=== PATIENT | male | born 1945 | race Caucasian/White ===

== ENCOUNTER 2017-03-24 09:06 | Outpatient (CLI) | payer MEDICARE ==
[~2017-03-24 09:06] MED LIST: Iopamidol 370 76% 100 ML VIAL ONE
[2017-03-24 09:37] LABS: Bilirubin Negative (Negative); Blood, Urine Trace (Negative); Glucose, Urine (Dipstick) Negative (Negative); Ketone, Urine Negative (Negative); Nitrite Negative (Negative); Protein, Urine (Dipstick) Negative (Neg-Trace)
[2017-03-24 09:45] LABS: Bacteria/HPF None Seen HPF (None Seen); RBC/HPF 0-3 HPF (0-3); Sperm/HPF Rare HPF (None Seen); Squamous Epithelial 0-3 HPF (0-3); WBC/HPF 0-3 HPF (0-3)
[2017-03-24 10:20] LABS: ALT (SGPT) 24 U/L (8-55); AST (SGOT) 23 U/L (5-34); Alkaline Phosphatase 73 U/L (40-150); Anion Gap 15 mmol/L (10-20); BUN (Urea Nitrogen) 18 mg/dL (8.4-25.7); Calc. Creatinine Clearance 0 mL/min (70-130); Calcium 9.7 mg/dL (7.8-10.44); Carbon Dioxide 26 mmol/L (23-31); Chloride 105 mmol/L (98-107); Cholesterol 145 mg/dl (< 200 Desired); Estimated GFR-MDRD 67; Globulin 2.7 g/dL (2.4-3.5); LDL Cholesterol, Calculated 92 mg/dL; Protein, Total 6.8 g/dL (5.8-8.1)
--- NOTE | 2017-03-24 12:24 | CT ---
CT ABDOMEN AND PELVIS WITH AND WITHOUT IV CONTRAST: Date: 03/24/17 HISTORY: Back pain, unable to urinate. FINDINGS: There is scarring of the left lung base. There is borderline cardiomegaly. The liver, pancreas, and adrenal glands are normal. No calcified gallstones are seen. A small hiatal hernia is present. There is a 7.4 cm exophytic cyst arising from the superior aspect of the right kidney. No calculi se en in the kidneys, ureters, or the urinary bladder. No hydroureteronephrosis is noted on either side . The prostate is enlarged. No solid or enhancing renal mass is seen. There is normal contrast excre tion into the ureters and urinary bladder. There is thickening of the wall of the urinary bladder. No free air, free fluid, or lymphadenopathy noted in the abdomen or pelvis. There are vascular calci fications without evidence of aneurysmal dilatation of the abdominal aorta. There are postop changes of laminectomy in the lower lumbar spine with fluid collection with posteri or enhancement posteriorly in the soft tissues. The linear posterior enhancement extends into the wa lls of the paraspinal muscles. There are degenerative changes in the spine. IMPRESSION: 1. No CT evidence of urinary tract calculi or obstruction. 2. Right renal cyst. 3. Small hiatal hernia. 4. Prostatic enlargement. 5. Bladder wall thickening. 6. Postop changes in the lower lumbar spine with posterior soft tissue fluid collection. This may b e due to postop seroma or infection. Clinical correlation is recommended. Findings discussed over the telephone with Dr. Galindo at 1050 hours. CODE CR. POS: JOSE C
== END 2017-03-24 09:07 | disposition home or self-care (01) ==
LOC: SCSCT 09:06
PROVIDERS: ATTEND Urology
DX: Z12.5 Encounter for screening for malignant neoplasm of prostate (principal); N28.1 Cyst of kidney, acquired; N40.1 Benign prostatic hyperplasia with lower urinary tract symptoms; E78.2 Mixed hyperlipidemia; K44.9 Diaphragmatic hernia without obstruction or gangrene; N32.89 Other specified disorders of bladder; I10 Essential (primary) hypertension; R31.29 Other microscopic hematuria; R33.9 Retention of urine, unspecified; Z79.899 Other long term (current) drug therapy; Z98.890 Other specified postprocedural states
CPT/HCPCS: 36415; 74178; 80053; 80061; 81001; 87086; G0103; G8978-GP-CK; G8979-GP-CI

== ENCOUNTER 2018-08-04 14:15 | Outpatient (CLI) | payer MEDICARE ==
--- NOTE | 2018-08-04 15:09 | RAD ---
LUMBAR SPINE 5 VIEWS: HISTORY: Low back pain. Stenosis. FINDINGS: There are 5 lumbar-type vertebrae. Pedicles and pars interarticularis are intact. Mild left convex rotator scoliotic curvature on the frontal view. Osteophytosis throughout the vertebral bodies and f acets. Vertebral body heights are maintained. Minimal degenerative spondylolisthesis at the L3-4 le yadiel without abnormal translational motion upon flexion or extension. Disk space narrowing on the upr ight view is most pronounced at the L1-2 and L4-5 levels. IMPRESSION: Degenerative changes throughout the lumbar spine as detailed above. No evidence of compression fract ure or other acute osseous abnormalities. POS: JOSE C
== END 2018-08-04 14:16 | disposition home or self-care (01) ==
LOC: BICRAD 14:15
PROVIDERS: ATTEND Family Medicine
DX: M48.061 Spinal stenosis, lumbar region without neurogenic claudication (principal); M47.816 Spondylosis without myelopathy or radiculopathy, lumbar region
CPT/HCPCS: 72100

== ENCOUNTER 2018-08-25 11:32 | Outpatient (CLI) | payer MEDICARE ==
[~2018-08-25 11:32] MED LIST changes: +Gadobenate Dimeglumine 529 MG/1 ML (20ML VIAL) ONE; -Iopamidol 370 76% 100 ML VIAL ONE
--- NOTE | 2018-08-25 15:11 | MRI ---
MRI LUMBAR SPINE WITH AND WITHOUT CONTRAST: HISTORY: Previous back surgery. Back pain radiating down the right hip and leg. COMPARISON: None. TECHNIQUE: MRI lumbar spine is performed with and without intravenous Gadolinium administration. Multisequentia l, multiplanar imaging is performed. FINDINGS: Appropriate T1 marrow signal intensity of the lumbar vertebrae. Lumbar spine vertebral body height i s maintained. There is no fracture. No significant STIR hyperintensity to suggest vertebral body ed brian or ligamentous injury. 2.8 mm of retrolisthesis of L1 upon L2, 3.3 mm anterolisthesis of L3 upon L4. There is no abnormal enhancement. No abnormal enhancement in the thecal sac including the caud a equina and conus medullaris. Exophytic cyst emanating from the right kidney. Conus medullaris terminates at the mid to lower aspe ct of T12. T12-L1: Adequate disk hydration. No significant central canal stenosis. Neural foramen are patent. L1-L2: Desiccation with moderate loss of disk space height. Minimal generalized disk bulge and mini mal ligamentum flavum thickening and facet hypertrophy. Minimal central canal stenosis. Mild to mod erate bilateral foraminal narrowing. L2-L3: Desiccation with mild loss of disk space height. Posterior laminectomy defect. No significa nt central canal stenosis. Mild to moderate bilateral neural foraminal narrowing. L3-L4: Posterior laminectomy defect. A small amount of fluid in both facet joints. There is bilate ral facet hypertrophy. There is a generalized disk bulge. Overall, there is mild central canal sten osis. Moderate bilateral foraminal narrowing. Mid L4 vertebral body level: There appears to be moderate narrowing of the thecal sac secondary to g ranulation tissue. L4-L5: Desiccation with severe loss of disk space height. Generalized disk bulge results in mild ce ntral canal stenosis. There is mild narrowing of the left subarticular zone. There is some mass eff ect without obscuration of the traversing left L5 nerve root. Right subarticular zone is unremarkabl e. Moderate right and moderate to severe left foraminal narrowing. L5-S1: Adequate disk hydration. No significant posterior disk abnormality. No significant central canal stenosis. Mild to moderate bilateral foraminal narrowing. IMPRESSION: 1. Postsurgical changes lumbar spine as detailed above. There are varying degrees of central canal stenosis as detailed above. Varying degrees of foraminal narrowing on the basis of degenerative figueroa ge. 2. There is moderate central canal stenosis predominantly at the L4 vertebral body level, predominan tly due to enhancing scar tissue at the laminectomy defect site along the posterior left and right as pect of the central spinal canal. POS: JOSE C
== END 2018-08-25 11:33 | disposition home or self-care (01) ==
LOC: SCSMRI 11:32
PROVIDERS: ATTEND Family Medicine
DX: M48.00 Spinal stenosis, site unspecified (principal); Z98.890 Other specified postprocedural states
CPT/HCPCS: 72158; 82565

== ENCOUNTER 2019-02-27 07:06 | Outpatient (CLI) | payer MEDICARE ==
--- NOTE | 2019-02-27 09:10 | ULT ---
ABDOMINAL AORTIC ULTRASOUND: HISTORY: Abdominal aortic aneurysm screening. FINDINGS: Real-time imaging of the abdominal aorta shows the proximal aorta to be largely obscured. The mid ao rta measures 2 cm. The more distal aorta is minimally ectatic with a measurement of approximately 2. 2 to 2.3 cm. The aortic bifurcation is normal. The iliac arteries are borderline in size, measuring in the 12 to 13 mm range. IMPRESSION: No evidence of aortic aneurysm. POS: OFF
== END 2019-02-27 07:07 | disposition home or self-care (01) ==
LOC: SCSULT 07:06
PROVIDERS: ATTEND Family Medicine
DX: Z13.6 Encounter for screening for cardiovascular disorders (principal)
CPT/HCPCS: 76775

== ENCOUNTER 2019-05-03 14:23 | Outpatient (CLI) | payer MEDICARE ==
[2019-05-03 15:41] LABS: Hemoglobin 16.1 g/dL (14.0-18.0); Mean Corpuscular HGB CONC 33.4 g/dL (32.0-36.0); Mean Corpuscular Hemoglobin 31.2 pg (27.0-31.0); Mean Corpuscular Volume 93.6 fL (78.0-98.0); Platelet Count 186 thou/uL (130-400); RBC Distribution Width 11.4 % (11.5-14.5); Red Blood Cell (RBC) Count 5.17 mill/uL (4.70-6.10); White Blood Cell (WBC) Count 6.8 thou/uL (4.8-10.8)
[2019-05-03 15:43] LABS: Bilirubin Negative (Negative); Blood, Urine 3+ (Negative); Clarity Clear (Clear); Glucose, Urine (Dipstick) Normal (Negative); Leukocyte Negative Leu/uL (Negative); Nitrite Negative (Negative); Protein, Urine (Dipstick) Negative (Neg-Trace); RBC/HPF Greater than 50 HPF (0-3); Squamous Epithelial 0-3 HPF (0-3); Urobilinogen Normal mg/dL (Less than 2)
[2019-05-03 15:45] LABS: Bacteria/HPF 1+ HPF (None Seen)
[2019-05-03 16:00] LABS: Anion Gap 14 mmol/L (10-20); BUN (Urea Nitrogen) 24 mg/dL (8.4-25.7); Calc. Creatinine Clearance 0 mL/min (70-130); Calcium 9.2 mg/dL (7.8-10.44); Carbon Dioxide 26 mmol/L (23-31); Chloride 105 mmol/L (98-107); Estimated GFR-MDRD 59; Glucose 98 mg/dL (83-110); Potassium 4.6 mmol/L (3.5-5.1); Sodium 140 mmol/L (136-145)
[2019-05-03 16:14] LABS: INR-International Normal Ratio 1.1; PTT 30.2 SEC (22.9-36.1)
--- NOTE | 2019-05-03 17:40 | EKG ---
Test Reason : Blood Pressure : / mmHG Vent. Rate : 072 BPM Atrial Rate : 072 BPM P-R Int : 174 ms QRS Dur : 106 ms QT Int : 402 ms P-R-T Axes : 075 254 137 degrees QTc Int : 440 ms Electronic atrial pacemaker with PAC Right superior axis deviation vs lead reversal Incomplete right bundle branch block Cannot rule out Anterior infarct (cited on or before 21-FEB-2012) T wave abnormality, consider lateral ischemia Abnormal ECG When compared with ECG of 23-FEB-2017 11:50, Electronic atrial pacemaker has replaced Sinus rhythm Incomplete right bundle branch block is now Present Confirmed by DR. Ricardo SCHULZ ([id number]) on 05/03/2019 5:39:51 PM Referred By: FERMÍN Confirmed By:DR. Ricardo SCHULZ
== END 2019-05-03 14:24 | disposition home or self-care (01) ==
LOC: LABBT 14:23
PROVIDERS: ATTEND Urology
DX: Z01.818 Encounter for other preprocedural examination (principal); N40.1 Benign prostatic hyperplasia with lower urinary tract symptoms; R31.29 Other microscopic hematuria; R33.9 Retention of urine, unspecified; M48.00 Spinal stenosis, site unspecified; Z80.42 Family history of malignant neoplasm of prostate; I42.0 Dilated cardiomyopathy; Z12.5 Encounter for screening for malignant neoplasm of prostate; N52.9 Male erectile dysfunction, unspecified
CPT/HCPCS: 80048; 81001; 85027; 85610; 85730; 87086; 93005; 93010

== ENCOUNTER 2019-05-14 07:25 | Day surgery (SDC) | payer MEDICARE ==
[2019-05-03 15:04] VITALS: BMI 30.8
[2019-05-14] MEDS ORDERED: Levofloxacin 500 mg/D5W 100 ml Premix Bag ONE (08:40)
[2019-05-14] MEDS ORDERED: Midazolam HCl 2 mg/2 ml Vial ONE (09:52)
[2019-05-14] MEDS ORDERED: Fentanyl 100 MCG/2 ML VIAL ONE (09:52)
[2019-05-14] MEDS ORDERED: Propofol 1,000 MG/100 ML VIAL IV ONE (09:52)
[2019-05-14] MEDS ORDERED: ePHEDrine/0.9% NaCl/PF SYRINGE 50 mg/10 ml ONE (09:57)
[2019-05-14] MEDS ORDERED: Iothalamate Meglumine 60% 50 ML VIAL FS ONE (10:21)
[2019-05-14] MEDS ORDERED: Phenazopyridine HCl 97.5 MG TABLET ONE (11:30)
--- NOTE | 2019-05-14 12:00 | OP ---
DATE OF PROCEDURE: 05/14/2019 PREOPERATIVE DIAGNOSES: A 74-year-old male with trilobar hyperplasia of the prostate, history of urinary retention. POSTOPERATIVE DIAGNOSES: A 74-year-old male with trilobar hyperplasia of the prostate, history of urinary retention. PROCEDURE PERFORMED: Cystoscopy, UroLift implant x6. ANESTHESIA: TIVA. COMPLICATIONS: None apparent. DISPOSITION: To recovery room in stable condition. INDICATIONS FOR PROCEDURE AND HISTORY: Mr. Mcmanus is a 74-year-old male with history of BPH, trilobar hyperplasia, with history of urinary retention, PVR of 600 to 800 mL. He has been on dual medical therapy, and desires to transition to surgical intervention. He did undergo workup with cystoscopy, volume study. He was informed regarding options of transurethral resection of prostate versus UroLift implant. As he does have evidence of a small intravesical median lobe, options of TURP was further addressed for more efficacious treatment. As he desires less invasive approach, full disclosure that UroLift may be suboptimal due to small intravesical median lobe. He desires a trial with full understanding that he may require staged intervention. Risks and complications of UroLift were reviewed with him in detail including, but not limited to, bleeding, pain, infection, injury to adjacent organs, injury to adjacent structures such as the ureteral orifices, bony prominences, neural vasculature was reviewed with him in detail. DESCRIPTION OF PROCEDURE: After an informed consent was signed, the patient was taken to the operating room, placed in a dorsal lithotomy position with the genital area prepped and draped in the usual surgical sterile fashion. A 22-Martiniquais cystoscope was utilized for cystoscopy, which demonstrated normal anterior urethra. Prostatic urethra was entered, which demonstrated again trilobar hyperplasia of the prostate with a small intravesical median lobe. On rigid cystoscopy, I am able to visualize the ureteral orifices away from the median lobe about 2 to 3 mm. This was kept out of harm's way throughout the procedure. At this time, we did transition to a UroLift scope, this was passed with a visual obturator. A total of 6 implants were placed. The first implant was placed in the left lateral lobe, care was taken to stay at least a centimeter and a half away from the bladder neck with the most proximal implants. We placed 2 implants on the left side, 3 on the right, and a 5th one was placed to reduce the median lobe. The UroLift device was placed in the sulcus of the median lobe and the median lobe retracted and reduced to the right side and implant placed to keeping the bladder neck off the harm's way. Reduction of the median lobe was coated with successful implant. Repeat cystoscopy demonstrated no evidence of implant in the bladder neck or the bladder mucosa side with the UOs kept out of harm's way. A nice open channel was seen sitting at the verumontanum. He tolerated the procedure well and transported to the recovery room in stable condition. We will watch him for a voiding trial. He is instructed to continue his dual medical therapy unless otherwise recommended by me. He is provided ciprofloxacin for 5 days, Azo p.r.n. and will see me tomorrow for a peak-flow PVR. Job ID: [id number] MTDD
== END 2019-05-14 16:50 | disposition home or self-care (01) ==
LOC: SDC 07:25
PROVIDERS: ATTEND Urology
PROC: 0T7D8DZ Dilation of Urethra with Intraluminal Device, Via Natural or Artificial Opening Endoscopic (ICD-10-PCS; principal; 2019-05-14)
DX: N40.1 Benign prostatic hyperplasia with lower urinary tract symptoms (principal); N13.8 Other obstructive and reflux uropathy; R33.8 Other retention of urine; N52.9 Male erectile dysfunction, unspecified; M19.90 Unspecified osteoarthritis, unspecified site; G47.33 Obstructive sleep apnea (adult) (pediatric); I42.0 Dilated cardiomyopathy; M48.00 Spinal stenosis, site unspecified; Z87.891 Personal history of nicotine dependence; Z79.1 Long term (current) use of non-steroidal anti-inflammatories (NSAID); Z79.82 Long term (current) use of aspirin; Z79.899 Other long term (current) drug therapy; Z88.2 Allergy status to sulfonamides; Z95.0 Presence of cardiac pacemaker
CPT/HCPCS: 76000; C1889; C9740; J1956; J2250; J2704; J3010

== ENCOUNTER 2019-09-03 12:26 | Outpatient (CLI) | payer MEDICARE ==
[2019-09-03] MEDS ORDERED: Magnevist 469MG/ML 20 ML VIAL ONE (15:03)
--- NOTE | 2019-09-03 15:15 | MRI ---
MRI LUMBAR SPINE WITH AND WITHOUT CONTRAST: History: Leg and back pain. Comparison: MRI lumbar spine August 25, 2018. Findings: Large cyst superior pole right kidney. Mild ectasia of the aorta. Mild bilateral lower lumbar spine paraspinal muscle atrophy. No marrow infiltrative process. The conus medullaris terminates near the superior endplate of L1. Levels are as follows: L1-L2: Moderate degenerative disc space height loss. Moderate hypertrophic facet arthrosis. Circumfer ential disc bulge. Effacement of the ventral CSF space. Spinal canal measures 8 mm. Moderate bilateral neural foraminal narrowing. There is 1-2 mm retrolisthesis. L2-L3: Moderate degenerative disc space height loss. Circumferential disc osteophyte complex, greates t in the sub foraminal zones. Mild effacement of ventral CSF space. Spinal canal measures 9 mm. 2 mm retrolisthesis. Moderate bilateral neural foraminal narrowing with abutment of the exiting and tra versing nerve roots. L3-L4: Prior laminectomy change. 2 mm anterolisthesis. Posterior displacement of the disc material a s an adaptation to subluxation. Moderate to severe hypertrophic facet arthropathy. Moderate to severe bilateral neural foraminal narrowing with abutment of both exiting and traversing nerve roots. L4-L5: Advanced degenerative disc space height loss. Circumferential disc osteophyte complex, greates t in the sub foraminal zones. Severe left and moderate to severe right neural foraminal narrowing with abutment of both exiting nerve roots and traversing nerve roots. Spinal canal measures approxima tely 8 mm. At the level of the L4 vertebral body there is dorsal postsurgical scar with subtle narrowing of the spinal canal to approximately 9 mm. L5-S1: There is enhancing left paracentral/lateral recess disc herniation which abuts the left exitin g S1 and S2 nerve roots. This disc herniation measures 7 mm in craniocaudal dimension with a transverse width of 9 mm and an AP dimension of 7 mm. Impression: 1. New from comparison exam left paracentral and lateral recess disc herniation at L5-S1 with S1 and S2 nerve root abutment. 2. Multilevel spondylosis as described. Transcribed Date/Time: 09/03/2019 3:45 PM
== END 2019-09-03 12:27 | disposition home or self-care (01) ==
LOC: MRI 12:26
PROVIDERS: ATTEND Surgery
DX: M48.062 Spinal stenosis, lumbar region with neurogenic claudication (principal); M47.26 Other spondylosis with radiculopathy, lumbar region; M51.27 Other intervertebral disc displacement, lumbosacral region
CPT/HCPCS: 72158; 82565; A9579

== ENCOUNTER 2020-10-29 13:00 | Outpatient (CLI) | payer MEDICARE | END 2020-10-29 13:01 | disposition home or self-care (01) | LOC: BICRAD 13:00 | PROVIDERS: ATTEND Podiatrist | DX: M79.671 Pain in right foot (principal) | CPT/HCPCS: 36415; 84550 ==

== ENCOUNTER 2020-12-08 13:41 | Outpatient (CLI) | payer MEDICARE | END 2020-12-08 13:42 | disposition home or self-care (01) | LOC: BICRAD 13:41 | PROVIDERS: ATTEND Podiatrist | DX: S91.301A Unspecified open wound, right foot, initial encounter (principal) ==

== ENCOUNTER 2020-12-23 10:15 | Outpatient (CLI) | payer MEDICARE | END 2020-12-23 10:16 | disposition home or self-care (01) | LOC: BICRAD 10:15 | PROVIDERS: ATTEND Podiatrist | DX: M79.671 Pain in right foot (principal); S92.351A Displaced fracture of fifth metatarsal bone, right foot, initial encounter for closed fracture ==

== ENCOUNTER 2023-02-06 11:07 | Emergency (ER) | payer MEDICARE ==
[2023-02-06] MEDS ORDERED: Lidocaine 1% w/Epinephrine 1:100K 20 ML VIAL ONE (13:01)
== END 2023-02-06 13:44 | disposition home or self-care (01) ==
LOC: ERS 11:07
DX: I83.893 Varicose veins of bilateral lower extremities with other complications (principal); I48.91 Unspecified atrial fibrillation; Z79.01 Long term (current) use of anticoagulants; Z79.899 Other long term (current) drug therapy
CPT/HCPCS: 12001